=== PATIENT | female | born 1935 | race African-American/Black ===

== ENCOUNTER 2021-10-02 01:12 | Emergency (ER) | payer OTHER ==
[~2021-10-02] VITALS: Ht 162.6 cm; Wt 49.9 kg
--- NOTE | 2021-10-02 01:32 | NUR ---
BIBRA 38 FROM HOME FOR C/O L FOOT PAIN W/ HX OF DM AND TOE AMPUTATION. NO NEW TRAUMA REPORTED. NO WOUNDS OR S/S OF INFX TO EXTREMITY. PT AWAKE AND ALERT X4 BREATHING EVEN AND UNLABORED. ALL V/S WNL.
--- NOTE | 2021-10-02 01:36 | NUR ---
DR. LAW ARNDT AT PT'S BEDSIDE
[2021-10-02] MEDS ORDERED: KETOROLAC TROMETHAMINE INJ 30 MG/ML VIAL ONE (01:41)
[2021-10-02] MEDS: KETOROLAC TROMETHAMINE INJ 30 MG/ML VIAL IM ONE (01:45)
--- NOTE | 2021-10-02 02:14 | NUR ---
[employer] AT PT'S BEDSIDE
[2021-10-02 02:30] VITALS: BP 132/81
[2021-10-02] MEDS ORDERED: HYDROCODONE/APAP 5/325MG TABLET ONE (04:00)
[2021-10-02] MEDS: HYDROCODONE/APAP 5/325MG TABLET PO ONE (04:02)
[2021-10-02] MEDS ORDERED: HYDR-4209 PO (04:06)
[2021-10-02] MEDS ORDERED: GABA-532 PO (04:11)
--- NOTE | 2021-10-02 04:25 | NUR ---
Patient discharged to home in stable condition. Written and verbal after care instructions given. Patient verbalizes understanding of instruction. PT assisted via wheelchair to car and driven home by son.
== END 2021-10-02 04:26 | disposition home or self-care (01) ==
LOC: ER 01:14
DX: M79.672 Pain in left foot (principal); I10 Essential (primary) hypertension; E11.9 Type 2 diabetes mellitus without complications; F17.200 Nicotine dependence, unspecified, uncomplicated; Z89.432 Acquired absence of left foot; Z60.2 Problems related to living alone; Z79.899 Other long term (current) drug therapy
CPT/HCPCS: 73630; 96372; 99283; J1885